=== PATIENT | male | born 1980 | race Caucasian/White ===

== ENCOUNTER 2020-02-05 13:31 | Emergency (ER) | payer OTHER ==
[~2020-02-05] VITALS: Ht 182.9 cm; Wt 84.4 kg
[2020-02-05] MEDS ORDERED: BACTRIM DS TAB1 EACH PO (14:03)
== END 2020-02-05 14:12 | disposition home or self-care (01) ==
LOC: ER 13:31
DX: S60.462A Insect bite (nonvenomous) of right middle finger, initial encounter (principal); Z90.49 Acquired absence of other specified parts of digestive tract; W57.XXXA Bitten or stung by nonvenomous insect and other nonvenomous arthropods, initial encounter; Y93.89 Activity, other specified; Y92.89 Other specified places as the place of occurrence of the external cause; Y99.8 Other external cause status